=== PATIENT | male | born 1940 | race African-American/Black ===

== ENCOUNTER 2017-11-23 16:36 | Emergency (ER) | payer MEDICARE, OTHER ==
[~2017-11-23 16:36] MED LIST: ATOR10TA24 PO; ATR80PT PO; CELE-1 PO; CITA-156 PO; CLON-393 PO; ENO100I SC; HCTZ25 PO; LOR05 PO; METXL50 PO; NAP500; OMEP-218 PO; POT10 PO; TERA5CAP57 PO
[2017-11-23] MEDS ORDERED: WARF5TAB23 PO (16:47)
[2017-11-23] MEDS ORDERED: ASPI81TA94 PO (16:47)
--- NOTE | 2017-11-23 17:05 | EKG ---
FACILITY: [facility] - [place] PATIENT NAME: AUBREE DOMINIQUE : [id number] MR: [id number] V: [id number] EXAM DATE: ORDERING PHYSICIAN: PATRICIO PAREDES TECHNOLOGIST: Test Reason : Blood Pressure : / mmHG Vent. Rate : 075 BPM Atrial Rate : 075 BPM P-R Int : 180 ms QRS Dur : 168 ms QT Int : 442 ms P-R-T Axes : 041 035 018 degrees QTc Int : 493 ms Sinus rhythm Right bundle branch block Diffuse ST-T abnormalities Abnormal ECG No previous ECGs available Confirmed by LOLIS PLASCENCIA ([id number]) on 11/23/2017 10:08:45 PM Referred By: SAM Confirmed By:LOLIS PLASCENCIA
[2017-11-23 17:27] LABS: PLATELET COUNT, AUTOMATED 260 K/uL (150-450)
[2017-11-23] MEDS ORDERED: NS(*) 0.9% 1000 ML BAG 1,000 ML IV ONE (17:30)
[2017-11-23 17:41] LABS: INR 1.29
--- NOTE | 2017-11-23 17:47 | RADIOLOGY IMAGING REPORT ---
FACILITY: [facility] PATIENT NAME: Chau Clinton : 1940 MR: [id number] V: [id number] EXAM DATE: ORDERING PHYSICIAN: PATRICIO PAREDES TECHNOLOGIST: Location: [facility] [place] Patient: Chau Clinton : 1940 Visit/Account:[id number] Date of Sevice: 11/23/2017 Chest single view: HISTORY: Weakness. COMPARISON: 11/02/2007 FINDINGS: Portable chest 1713 hours: Cardiomegaly mediastinal silhouette is within normal limits. The re is no infiltrate or pleural effusion. No pneumothorax. Pulmonary vasculature is normal. Atherosclerotic changes are present in the aorta. IMPRESSION: No evidence of acute cardiopulmonary abnormality. Report Dictated By: Elisabeth Oro MD at 11/23/2017 5:44 PM Report E-Signed By: Elisabeth Oro MD at 11/23/2017 5:45 PM WSN:[id number]
--- NOTE | 2017-11-23 18:08 | ER Report ---
History and Physical Time Seen By MD: 16:54 Hx. of Stated Complaint: PT REPORTS LOW BP AT HOME HPI/ROS CHIEF COMPLAINT: low blood pressure at home HISTORY OF PRESENT ILLNESS: Pt here for evaluation of low blood pressure at home. Pt takes his blood pressure daily and usually runs around 120/80. today pt systolic was under 100 so he got concerned. no chest pain. no sob. not dizzy. no diarrhea or vomiting. Pt states he felt generally weak all over today. REVIEW OF SYSTEMS: Constitutional: No fever, no chills. Eyes: No discharge. ENT: No sore throat. Cardiovascular: No chest pain, no palpitations. Respiratory: No cough, no shortness of breath. Gastrointestinal: No abdominal pain, no vomiting. Genitourinary: No hematuria. Musculoskeletal: No back pain. Skin: No rashes. Neurological: No headache, + weakness Allergies: Coded Allergies: No Known Drug Allergies (Verified , 11/23/17) Home Meds Reported Medications Aspirin (ASPIRIN) 81 Mg Tab.chew, 162 MG PO QDAY, TAB.CHEW 11/23/17 Warfarin Sodium (WARFARIN SODIUM) 5 Mg Tablet, 10 MG PO QDAY, TAB 11/23/17 Terazosin Hcl (Hytrin) 5 Mg Capsule, 5 MG PO HS, 0 Refills 04/06/08 Celecoxib (Celebrex) 200 Mg Capsule, MG PO BID Y in the morning as needed for pain 04/06/08 Atorvastatin (Lipitor) 10 Mg Tablet, 40 MG PO BID 04/06/08 Potassium Chloride (Micro-K/K-Dur/Klor-Con) 10 Meq Capcr, 10 MEQ PO BIDBS 04/06/08 Metoprolol Succinate (Toprol Xl) 50 Mg Tabcr, 100 MG PO BID, 0 Refills DOSE UNK 04/06/08 Omeprazole Magnesium (Prilosec Otc) 20 Mg Tablet.dr, 20 MG PO QDAY, 0 Refills 04/06/08 Past Medical/Surgical History Pmhx: ptsd, pe, gerd, htn, arthritis, CT, stroke Pshx, c5-7 fusion, left and right shoulder. Reviewed Nurses Notes: Yes Old Medical Records Reviewed: Yes Hx Smoking: No Exposure to Second Hand Smoke?: No Hx Alcohol Use: No Constitutional Vital Sign - Last 24 Hours 11/23/17 11/23/17 11/23/17 11/23/17 16:40 16:40 17:12 18:10 Temp 97.9 Pulse 75 74 69 75 80 Resp 16 15 14 B/P (MAP) 94/64 (74) 94/64 89/64 (72) 97/68 (78) 100/70 (80) Pulse Ox 91 94 90 O2 Delivery Room Air Room Air 11/23/17 18:20 B/P (MAP) 105/81 (89) Physical Exam General Appearance: The patient is alert, has no immediate need for airway protection and no signs of toxicity. Eyes: Pupils equal and round no pallor or injection, EOMI ENT: no pharyngeal erythema or exudates, Mucous membranes are moist Respiratory: There are no retractions, lungs are clear to auscultation. Cardiovascular: Regular rate and rhythm. pulses are equal and symmetrical Gastrointestinal: Abdomen is soft and non tender, no masses, bowel sounds normal, no guarding, no rigidity or rebound Neurological: Cranial nerves II-XII grossly intact, no sensory or motor loss Skin: Warm and dry, no rashes. Musculoskeletal: Neck is supple non tender, no vertebral tenderness Extremities are nontender, non swollen and have full range of motion. DIFFERENTIAL DIAGNOSIS: After history and physical exam differential diagnosis was considered for dehydration, mi, sepsis, Medical Decision Making Data Points Result Diagram: 11/23/17 1710 11/23/17 1710 Laboratory Hematology Test 11/23/17 17:10 11/23/17 18:04 Red Blood Count 4.71 M/uL (4.00-5.60) Mean Corpuscular Volume 81.1 fL (80.0-96.0) Mean Corpuscular Hemoglobin 27.6 pg (26.0-33.0) Mean Corpuscular Hemoglobin Concent 34.1 g/dL (32.0-36.0) Red Cell Distribution Width 15.5 % (11.5-14.5) Mean Platelet Volume 8.0 fL (7.2-11.1) Neutrophils (%) (Auto) 57.0 % (39.4-72.5) Lymphocytes (%) (Auto) 25.7 % (17.6-49.6) Monocytes (%) (Auto) 12.1 % (4.1-12.4) Eosinophils (%) (Auto) 4.2 % (0.4-6.7) Basophils (%) (Auto) 1.0 % (0.3-1.4) Nucleated RBC Relative Count (auto) 0.1 /100WBC Neutrophils # (Auto) 2.1 K/uL (2.0-7.4) Lymphocytes # (Auto) 1.0 K/uL (1.3-3.6) Monocytes # (Auto) 0.5 K/uL (0.3-1.0) Eosinophils # (Auto) 0.2 K/uL (0.0-0.5) Basophils # (Auto) 0.0 K/uL (0.0-0.1) Nucleated RBC Absolute Count (auto) 0.00 K/uL Prothrombin Time 16.2 seconds (12.0-14.4) Prothromb Time International Ratio 1.29 Activated Partial Thromboplast Time 32 seconds (23-35) Sodium Level 138 mmol/L (137-145) Potassium Level 3.6 mmol/L (3.5-5.0) Chloride Level 103 mmol/L (98-107) Carbon Dioxide Level 25 mmol/L (22-30) Blood Urea Nitrogen 19 mg/dl (9-21) Creatinine 1.80 mg/dl (0.66-1.25) Glomerular Filtration Rate Calc 37.0 Random Glucose 138 mg/dl (75-110) Calcium Level 8.7 mg/dl (8.4-10.2) Total Bilirubin 0.4 mg/dl (0.2-1.3) Aspartate Amino Transf (AST/SGOT) 33 U/L (0-35) Alanine Aminotransferase (ALT/SGPT) 30 U/L (0-56) Alkaline Phosphatase 68 U/L (0-126) Troponin I < 0.012 ng/ml Total Protein 7.4 g/dl (6.3-8.2) Albumin 3.6 g/dl (3.5-5.0) Chemistry Test 11/23/17 17:10 11/23/17 18:04 White Blood Count 3.8 k/uL (4.5-11.0) Red Blood Count 4.71 M/uL (4.00-5.60) Hemoglobin 13.0 g/dL (14.0-18.0) Hematocrit 38.2 % (42.0-52.0) Mean Corpuscular Volume 81.1 fL (80.0-96.0) Mean Corpuscular Hemoglobin 27.6 pg (26.0-33.0) Mean Corpuscular Hemoglobin Concent 34.1 g/dL (32.0-36.0) Red Cell Distribution Width 15.5 % (11.5-14.5) Platelet Count 260 K/uL (150-450) Mean Platelet Volume 8.0 fL (7.2-11.1) Neutrophils (%) (Auto) 57.0 % (39.4-72.5) Lymphocytes (%) (Auto) 25.7 % (17.6-49.6) Monocytes (%) (Auto) 12.1 % (4.1-12.4) Eosinophils (%) (Auto) 4.2 % (0.4-6.7) Basophils (%) (Auto) 1.0 % (0.3-1.4) Nucleated RBC Relative Count (auto) 0.1 /100WBC Neutrophils # (Auto) 2.1 K/uL (2.0-7.4) Lymphocytes # (Auto) 1.0 K/uL (1.3-3.6) Monocytes # (Auto) 0.5 K/uL (0.3-1.0) Eosinophils # (Auto) 0.2 K/uL (0.0-0.5) Basophils # (Auto) 0.0 K/uL (0.0-0.1) Nucleated RBC Absolute Count (auto) 0.00 K/uL Prothrombin Time 16.2 seconds (12.0-14.4) Prothromb Time International Ratio 1.29 Activated Partial Thromboplast Time 32 seconds (23-35) Glomerular Filtration Rate Calc 37.0 Calcium Level 8.7 mg/dl (8.4-10.2) Total Bilirubin 0.4 mg/dl (0.2-1.3) Aspartate Amino Transf (AST/SGOT) 33 U/L (0-35) Alanine Aminotransferase (ALT/SGPT) 30 U/L (0-56) Alkaline Phosphatase 68 U/L (0-126) Troponin I < 0.012 ng/ml Total Protein 7.4 g/dl (6.3-8.2) Albumin 3.6 g/dl (3.5-5.0) Coagulation Test 11/23/17 17:10 Prothrombin Time 16.2 seconds Prothromb Time International Ratio 1.29 Activated Partial Thromboplast Time 32 seconds Urinalysis Test 11/23/17 18:04 EKG/Imaging EKG Interpretation Rbbb@ 75 ED Course/Re-evaluation Clinical Indication for ER IV: Hydration, IV Access ED Course 11/23/2017 6:06:34 pm Pts creatine on priors is 1.6-1.7. Pt currently 1.8 could be mildly dry. Fluids are hanging. Pts coumadin level is also low. On coumadin for a prior PE. Pt denies sob or chest pain currently. Pts ekg does show rbbb with no olds to compare. Pt denies cp or leg pain or swelling. Pt statse that he had his inr checked a day ago and it was low at 1.6 and was told to increase his coumadin to 10mg daily instead of rotating 7mg and 10mg. Pt just started yesterday with the 10mg daily. Pts coumadin level is now lower. PT denies change in diet. Since pt just increased his dosage to 10mg will keep him at the 10mg and will dose him with lovenox today. Pt is on his way to [facility]. Pt was planning to see his doctor on December 14 to have inr rechecked. Told him he needs to have it rechecked next week. States he can stop on his drive to get it checked. 11/23/2017 6:33:33 pm pts blood pressure improving with fluids. Decision to Disposition Date: Nov 23, 2017 Decision to Disposition Time: 18:33 Depart Departure Latest Vital Signs Vital Signs Date Time Temp Pulse Resp B/P (MAP) Pulse Ox O2 Delivery O2 Flow Rate FiO2 11/23/17 18:20 105/81 (89) 11/23/17 18:10 69 14 90 11/23/17 17:12 Room Air 11/23/17 16:40 97.9 Impression: Primary Impression: Dehydration Additional Impressions: INR (international normal ratio) abnormal Hypotension Condition: Improved Disposition: HOME OR SELF-CARE Referrals: SHIRAZ SALINAS MD (PCP) Patient Instructions: Dehydration (GEN) Additional Instructions: Make sure to start your coumadin 10mg daily tonight as per your doctor. I recommend you do not take our toprol tonight (blood pressure) and restart tomorrow as scheduled. You need to have your coumadin level rechecked next week. Return to nearest emergency room if symptoms worsen. Your coumadin (inr) level is low today at 1.29 Problem Qualifiers Additional Impressions: Hypotension Hypotension type: hypotension due to hypovolemia Qualified Codes: I95.89 - Other hypotension; E86.1 - Hypovolemia PATRICIO PAREDES DO Nov 23, 2017 18:07
[2017-11-23] MEDS ORDERED: ENOXAPARIN 100 MG/ML SYR SC ONE (18:25)
[2017-11-23 19:16] VITALS: BP 108/80
== END 2017-11-23 19:15 | disposition home or self-care (01) ==
LOC: ER 16:54
DX: E86.1 Hypovolemia (principal); R79.89 Other specified abnormal findings of blood chemistry; E86.0 Dehydration
CPT/HCPCS: 71045; 81001; 84484; 85025; 85610; 85730; 93005; 96360; 96361; 96372; 99284; J1650; J7030; 82040; 82247; 82310; 82374; 82435; 82565; 82947; 84075; 84132; 84155; 84295; 84450; 84460; 84520